=== PATIENT | male | born 1990 | race Caucasian/White ===

== ENCOUNTER 2016-11-17 04:23 | Emergency (ER) | payer SELFPAY ==
[2016-11-17 04:31] VITALS: BP 153/78; PULSE 96; TEMP 98.2; BMI 26.6
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
== END 2016-11-17 06:15 | disposition home or self-care (01) ==
LOC: JER 04:23
PROC: 0CQ13ZZ Repair Lower Lip, Percutaneous Approach (ICD-10-PCS; principal; 2016-11-17)
DX: S01.511A Laceration without foreign body of lip, initial encounter (principal); S01.81XA Laceration without foreign body of other part of head, initial encounter; W26.8XXA Contact with other sharp object(s), not elsewhere classified, initial encounter; Y93.89 Activity, other specified; Y92.830 Public park as the place of occurrence of the external cause; Y99.8 Other external cause status
CPT/HCPCS: 99283-25

== ENCOUNTER 2016-12-01 16:25 | Emergency (ER) | payer SELFPAY ==
[2016-12-01 16:29] VITALS: BP 136/88; PULSE 92; TEMP 98; BMI 28.1
--- NOTE | 2016-12-01 17:01 | PDOC ---
Suture Removal/Wound Check HPI - History of Present Illness Chief Complaint: Suture/Staple Removal(Here) Stated Complaint: STITCHES REMOVAL Time Seen by Provider: 12/01/16 16:33 History Source: Yes: Patient Exam Limitations: Yes: No Limitations Treated at: [facility] Date of Last ED visit: 11/17/16 - Previous ED Treatment Type of procedure performed on last visit: Yes: Laceration Repair Tetanus Immunization: Yes: Up to Date Antibiotics Prescribed: No Past History - Past Medical History Allergies/Adverse Reactions: Allergies No Known Allergies Allergy (Verified 12/01/16 16:29) Home Medications: Ambulatory Orders Albuterol Sulfate Inhaler - [Ventolin HFA Inhaler -] 1 - 2 inh PO Q4H 09/19/14 Cyclobenzaprine HCl [Flexeril -] 10 mg PO HS #7 tablet 09/19/14 Ibuprofen [Motrin -] 600 mg PO TID #21 tablet 09/19/14 Oxycodone HCl/Acetaminophen [Percocet 5-325 mg Tablet -] 1 - 2 tab PO Q6H #20 tablet 09/19/14 Bacitracin 28 gm TP ONCE #1 oint...g. 11/17/16 - Immunization History Immunizations Up to Date: Yes Tetanus Status: Less than 5 years - Social History Smoking History: No Smoking Status: Current every day smoker Number of Ciarettes Per Day: 20 Suture Removal/Wound Check PE - Physical Exam Laceration/Wound Check Symptoms: reports: None Current Severity Level: None Maximum Severity Level: None Pain Localization: None *Review of Systems - Review of Systems Constitutional: No: Symptoms Reported Musculoskeletal: No: Symptoms Reported Integumentary: No: Symptoms Reported Medical Decision Making - Medical Decision Making 12/01/16 16:59 8 sutures were removed from chin without difficulty there is no erythema edema, or localized suture irritation. *DC/Admit/Observation/Transfer Diagnosis at time of Disposition: Visit for suture removal - Discharge Dispostion Disposition: HOME Condition at time of disposition: Good Admit: No - Patient Instructions Printed Discharge Instructions: DI for Suture Removal
== END 2016-12-01 17:02 | disposition home or self-care (01) ==
LOC: JERFT 16:25
DX: Z48.02 Encounter for removal of sutures (principal)
CPT/HCPCS: 99281-25

== ENCOUNTER 2017-11-29 14:02 | Emergency (ER) | payer OTHER ==
[2017-11-29 14:06] VITALS: BP 122/70; PULSE 69; TEMP 98.2; BMI 30.4
[2017-11-29] MEDS ORDERED: AZITHROMYCIN 250 MG TABLET PO ONE (14:46)
[2017-11-29] MEDS ORDERED: AZITHROMYCIN 500 MG TABLET ONE (14:52)
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
[2017-11-29 15:09] LABS: URINE APPEARANCE CLEAR; URINE BILIRUBIN NEGATIVE (<2.0 mg/dL); URINE COLOR YELLOW; URINE GLUCOSE (UA) NEGATIVE (NEGATIVE); URINE KETONE NEGATIVE (NEGATIVE); URINE NITRITE NEGATIVE (NEGATIVE); URINE PROTEIN NEGATIVE (NEGATIVE); URINE UROBILINOGEN NEGATIVE mg/dL (0.2-1.0)
[2017-11-29 15:16] LABS: URINE LEUK ESTERASE 2+ (NEGATIVE)
[2017-11-29 15:18] LABS: URINE MUCUS MANY
== END 2017-11-29 16:58 | disposition home or self-care (01) ==
LOC: JERFT 14:02
DX: N34.2 Other urethritis (principal)
CPT/HCPCS: 36415; 81003; 81015; 86593; 87086; 87389; 87491; 87591; 99281-25

== ENCOUNTER 2018-07-20 01:29 | Emergency (ER) | payer SELFPAY ==
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
[2018-07-20] MEDS ORDERED: HYDROmorphone HCl 2 MG/ML VIAL ONE (02:42)
[2018-07-20] MEDS ORDERED: HYDROmorphone HCL CARPU-JECT 2 MG/1 ML DISP.SYRIN IM ONE (02:45)
[2018-07-20 03:09] VITALS: BP 117/75; PULSE 82; TEMP 98.8; BMI 26.4
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
== END 2018-07-20 03:41 | disposition home or self-care (01) ==
LOC: JER 01:29
PROC: 0RSJXZZ Reposition Right Shoulder Joint, External Approach (ICD-10-PCS; principal; 2018-07-20)
DX: S43.084A Other dislocation of right shoulder joint, initial encounter (principal); X50.9XXA Other and unspecified overexertion or strenuous movements or postures, initial encounter; Y93.89 Activity, other specified; Y92.89 Other specified places as the place of occurrence of the external cause; Y99.8 Other external cause status
CPT/HCPCS: 73030-TC-RT-FY; 99282-25

== ENCOUNTER 2019-01-31 02:31 | Emergency (ER) | payer SELFPAY ==
[2019-01-31 02:47] VITALS: TEMP 98.3
--- NOTE | 2019-01-31 02:47 | PDOC ---
History of Present Illness - General Chief Complaint: Pain Stated Complaint: RIGHT SHOULDER PAIN Past History - Past Medical History Allergies/Adverse Reactions: Allergies Allergy/AdvReac Type Severity Reaction Status Date / Time No Known Allergies Allergy Verified 01/31/19 02:47 Home Medications: Ambulatory Orders Ibuprofen [Motrin -] 600 mg PO TID #21 tablet 07/20/18 Anemia: No Asthma: No Cancer: No Cardiac Disorders: No COPD: No - Surgical History Abdominal Surgery: Yes (exploratory laparotomy) - Immunization History Td Vaccination: Yes TDAP Vaccination: Yes Immunization Up to Date: Yes - Psycho Social/Smoking Cessation Hx Smoking Status: No Smoking History: Unknown if ever smoked Have you smoked in the past 12 months: No Number of Cigarettes Smoked Daily: 20 Hx Alcohol Use: No Drug/Substance Use Hx: No *Physical Exam - Vital Signs Last Vital Signs Temp Pulse Resp BP Pulse Ox 98.3 F 130/80 01/31/19 02:46 01/31/19 02:46 Procedures - Joint Reduction Right Joint Reduction Site: right: Shoulder Pre-Procedure NV Exam: normal Conscious Sedation: Yes (Fentanyl, versed, ketamine) Reduction Attempts: 4 Anesthesia: Fentanyl Amt. of medication administered: 100mcg Procedure: Traction Counter Traction Post-Procedure NV Exam: normal Complications: No Post Joint Reduction Film: joint reduced Splint: No Medical Decision Making - Medical Decision Making 01/31/19 02:47 HPI: 28yo M hx R shoulder dislocations presents from home with atraumatic R shoulder dislocation after moving arm backwards oddly approx an hour ago, exactly the same as 2 other dislocations which required ED reductions, constant pain in R shoulder, nonradiating, acute onset, worse with movement, has not taken any pain meds, a little better in sling, just wants to get it reduced. Denies trauma , fall, other injuries, fever, chills, fatigue, headache, dizziness, numbness/ tingling, weakness, vision changes, shortness of breath, cough, chest pain, palpitations, leg swelling, abdominal pain, blood in stool, diarrhea, constipation, nausea, vomiting, dysuria, hematuria, confusion. ROS: Constitutional: Negative for chills, fever, fatigue, diaphoresis. HENT: Negative for sore throat, rhinorrhea, congestion. Eyes: Negative for visual disturbance. Respiratory: Negative for shortness of breath, cough, and wheezing. Cardiovascular: Negative for chest pain, palpitations, and leg swelling. Gastrointestinal: Negative for abdominal pain, blood in stool, constipation, diarrhea, nausea, and vomiting. Genitourinary: Negative for dysuria, flank pain, and hematuria. Musculoskeletal: Positive for R shoulder pain and dislocation. Negative for myalgias, back pain, and neck pain. Skin: Negative for rash. Neurological: Negative for light-headedness, dizziness, vertigo, syncope, weakness, numbness and headaches. Psychiatric/Behavioral: Negative for behavioral problems and confusion. PE: Gen: Alert, NAD, uncomfortable-appearing in significant pain HEENT: PERRL, EOMI, MMM, NCAT. No conjunctival pallor. Sclera are non-icteric. CV: Regular rate and rhythm. No murmurs, rubs, or gallops. PULM: No resp distress. CTAB, no wheezes, rales, or rhonchi. ABD: soft, NT/ND, no rebound tenderness or guarding, no CVA tenderness. BACK: No TTP of c/t/l-spine. No step-offs or deformities. MSK: 2+ pulses in all extremities. RUE: in sling, severe TTP of R shoulder, no TTP of clavicle or humerus or elbow , decreased ROM of shoulder 2/2 pain, shoulder deformed appears anterior dislocation of humeral head, sensation to light touch intact throughout, full ROM of wrist and fingers, 2+ pulse, <2 sec cap refill NEURO: AAOx3. PERRL. No gross CN deficits. Strength and sensation grossly intact throughout. EXTREMITIES: No cyanosis. No clubbing. No edema. No calf tenderness. PSYCH: Normal mood and thought pattern. SKIN: Warm and dry. Normal capillary refill. No rashes. No jaundice. MDM: 28yo M hx R shoulder dislocations presents from home with atraumatic R shoulder dislocation after moving arm backwards oddly, exactly the same as 2 other dislocations which required ED reductions. Hemodynamically stable, in significant pain, deformity of R shoulder, RUE neurovascularly intact, no other injuries, clavicle normal. Most likely dislocation due to hx, exam, and consistency with prior dislocations. No trauma or other signs of injury concerning for fx or other injuries. -XR R shoulder: anterior dislocation, no signs of fx -Morphine for pain -panel monitor -Conscious sedation with Fentanyl and Versed 01/31/19 04:26 Difficult reduction performed with fentanyl, versed, morphine, and ketamine. See procedure note. Written consent obtained. Fentanyl started at 0340, given 25mcg x4 at 5min intervals for total 100mcg, then 2 of versed. External rotation attempt unsuccessful. Pt still awake and in pain, resisting reduction - additional 2 versed and 4 morphine given. Traction with foot in axilla attempt unsuccessful. Traction counter traction attempt unsuccessful. Pt still in pain and resisting reduction. Additional 50mg ketamine and 4mg morphine given. External rotation attempt unsuccessful. Additional 50mg ketamine given. Traction counter traction successful. Pt feels much better. Sling placed. RUE neurovascularly intact. Pt sleepy but arousable. Throughout procedure, pulse ox in high 90s, BP stable systolic initially 140s down to 120s, HR stable, respiratiosn stable. 01/31/19 05:58 XR R shoulder: no fx or subluxation, reduction successful 01/31/19 06:15 Still a bit sleepy, but alert and oriented. Denies pain. RUE neurovascularly intact. Ambulating well, stable gait. Will dc home with ortho f/u. Return precautions given. Pt understands all dc instructions and all questions were answered. Discharge - Discharge Information Problems reviewed: Yes Clinical Impression/Diagnosis: Shoulder joint dislocation Condition: Improved Disposition: HOME - Admission No - Follow up/Referral Referrals: Valerio Pinto MD [Staff Physician] - - Patient Discharge Instructions Patient Printed Discharge Instructions: DI for Shoulder Dislocation Additional Instructions: You have been seen in the Emergency Department for your right shoulder dislocation. You were sedated and the shoulder was reduced back into the correct position. You will need further evaluation by an Orthopedic Surgeon and you may need surgery. We have given you a referral to Dr Pinto - give his office a call to set up an appointment for within 72 hours. If you experience pain, you can take Tylenol or Ibuprofen as directed on the medication bottle, but do not exceed 3g of Ibuprofen or 4g of Tylenol a day. Follow the RICE protocol to help with the healing process: R - Rest. Rest and protect the injured or sore area. Stop, change, or take a break from any activity that may be causing your pain or soreness. I - Ice. Cold will reduce pain and swelling. Apply an ice or cold pack right away to prevent or minimize swelling. Apply the ice or cold pack for 10 to 20 minutes, 3 or more times a day. After 48 to 72 hours, if swelling is gone, apply heat to the area that hurts. Do not apply ice or heat directly to the skin. Place a towel over the cold or heat pack before applying it to the skin. C - Compression. Keep the arm in the sling. Loosen the sling if it gets too tight. Signs that the sling is too tight include numbness, tingling, increased pain, coolness, or swelling in the area below the sling. E - Elevation. Elevate the injured or sore area on pillows while applying ice and anytime you are sitting or lying down. Try to keep the area at or above the level of your heart to help minimize swelling. Return to the ED immediately if you experience worsening pain not controlled by over the counter medications, numbness or tingling, weakness, fever, swelling, or any other new or worsening symptom. - Post Discharge Activity Work/Back to School Note: Back to Work
[2019-01-31] MEDS ORDERED: morphine CARPU-JECT 4 MG/1 ML DISP.SYRIN IVPUSH ONE ×3 (02:50→03:55)
[2019-01-31] MEDS ORDERED: morphine SULFATE 4 MG/ML VIAL ONE ×3 (02:58→03:58)
[2019-01-31] MEDS ORDERED: MIDAZOLAM HCL 2 MG/2 ML SINGLE DOSE VIAL IVPUSH ONE ×3 (03:17→03:50)
[2019-01-31 03:18] VITALS: BMI 27.7
--- NOTE | 2019-01-31 03:18 | PDOC ---
Attending Attestation - Resident Resident Name: BellonabilRachelLuci - ED Attending Attestation I have performed the following: I have examined & evaluated the patient, The case was reviewed & discussed with the resident, I agree w/resident's findings & plan - HPI HPI: 01/31/19 03:18 pt hyperextended his right arm and he dislocated the shoulder - Physicial Exam PE: 01/31/19 05:33 Pt has an anterior dislocation of the right arm. 01/31/19 05:38 Sensory motor intact - Medical Decision Making 01/31/19 03:18 Home with sling and ortho followup. 01/31/19 05:00 Difficult relocation; we began medicating pt at 3:40 with 25mcg fentanyl x 4 at 5 min interval (total 100mcg) P had received 4mg morphine earlier IVP; then anotyher 4mg morphine, then 2 of versed. External rotation was unsuccessful Then 2 more versed and 4mg more morphine given. Foot in axilla with traction unsuccessful. Traction countertraction unsuccessful Then another 4mg morphine given no success. Finally 50mg ketamine given. External rotation unsuccessful; Another 50mg ketamine given traction countertraction successful at 4:30AM Pt is being monitored. Pulsox is 94%; BP is stable 140,120,100, 120 systolic. HR was never tachycardic. 01/31/19 05:39 Pt is more awake now and he will go for post reduction XR. Follow with ortho for operative repair. Procedures - Joint Reduction Right Joint Reduction Site: right: Shoulder Pre-Procedure NV Exam: normal Conscious Sedation: Yes Reduction Attempts: 4 Anesthesia: Fentanyl (and versed) Amt. of medication administered: 100mcg Procedure: Traction Counter Traction (also external rotation; etc) Post-Procedure NV Exam: normal Complications: No Post Joint Reduction Film: joint reduced Splint: No Immobilized: Yes - Additional Procedures Additional Procedures: other (conscious sedation)
[2019-01-31] MEDS ORDERED: MIDAZOLAM HCL 2 MG/2 ML SINGLE DOSE VIAL ONE ×4 (03:28→04:12)
[2019-01-31] MEDS ORDERED: SODIUM CHLORIDE 0.9% 500 ML INFUS.BAG IV ONE (03:41)
[2019-01-31] MEDS ORDERED: KETAMINE HCL 200 MG/20 ML VIAL IVPUSH ONE (04:15)
[2019-01-31] MEDS ORDERED: KETAMINE HCL 200 MG/20 ML VIAL ONE (04:20)
[2019-01-31 06:15] VITALS: BP 125/70; PULSE 70
== END 2019-01-31 06:16 | disposition home or self-care (01) ==
LOC: JER 02:31
PROC: 0RSJXZZ Reposition Right Shoulder Joint, External Approach (ICD-10-PCS; principal; 2019-01-31)
DX: M24.411 Recurrent dislocation, right shoulder (principal)
CPT/HCPCS: 73030-TC-RT-FY; 99284-25

== ENCOUNTER 2021-10-30 19:58 | Emergency (ER) | payer OTHER ==
[2021-10-30 20:01] VITALS: BP 115/78; PULSE 76; TEMP 97.8; BMI 26.4
[2021-10-30] MEDS ORDERED: LIDOCAINE 5% TOPICAL PATCH TP ONE (21:02)
[2021-10-30] MEDS ORDERED: DEXAMETHASONE SOD PHOSPHATE 10 MG/1 ML VIAL IM ONE (21:02)
[2021-10-30] MEDS ORDERED: diazePAM 5 MG TABLET PO ONE (21:02)
[2021-10-30] MEDS ORDERED: KETOROLAC TROMETHAMINE 30 MG/1 ML VIAL IM ONE (21:02)
[2021-10-30] MEDS ORDERED: LIDOCAINE 5% TOPICAL PATCH ONE (21:07)
[2021-10-30] MEDS ORDERED: KETOROLAC TROMETHAMINE 30 MG/1 ML VIAL ONE (21:08)
[2021-10-30] MEDS ORDERED: DEXAMETHASONE SOD PHOSPHATE 10 MG/1 ML VIAL ONE (21:08)
[2021-10-30] MEDS ORDERED: diazePAM 5 MG TABLET ONE (21:08)
[2021-10-30] MEDS ORDERED: LIDOCAINE PATCH REMOVAL MC SCH (22:00)
== END 2021-10-30 22:40 | disposition home or self-care (01) ==
LOC: JERFT 19:58
PROC: 3E023GC Introduction of Other Therapeutic Substance into Muscle, Percutaneous Approach (ICD-10-PCS; principal; 2021-10-30)
DX: M54.31 Sciatica, right side (principal)
CPT/HCPCS: 99284-25; J1100

== ENCOUNTER 2022-04-15 09:47 | Emergency (ER) | payer OTHER ==
[2022-04-15 10:02] VITALS: BMI 24.3
[2022-04-15] MEDS ORDERED: morphine CARPU-JECT 4 MG/1 ML DISP.SYRIN IVPUSH ONE (10:20)
[2022-04-15] MEDS ORDERED: ONDANSETRON 4 MG/2 ML VIAL IVPUSH ONE (10:20)
[2022-04-15] MEDS ORDERED: ONDANSETRON 4 MG/2 ML VIAL ONE (10:34)
[2022-04-15 10:36] LABS: BASO % 0.2 % (0-2.0); EOS % 0.6 % (0-4.5); HEMATOCRIT 43.1 % (35.4-49); HEMOGLOBIN 14.4 GM/dL (11.7-16.9); LYMPH % 17.7 % (8-40); MCH 30.8 pg (25.7-33.7); MCHC 33.5 g/dl (32.0-35.9); MEAN CELL VOLUME 91.7 fl (80-96); MEAN PLT VOLUME 8.6 fl (7.5-11.1); MONO % 11.1 % (3.8-10.2); NEUT % 70.4 % (42.8-82.8); PLATELET COUNT 307 10^3/uL (134-434); RDW 13.6 % (11.9-15.9); WHITE BLOOD COUNT 7.6 K/mm3 (4.0-10.0)
[2022-04-15] MEDS ORDERED: KETOROLAC TROMETHAMINE 15 MG/ML VIAL IVPUSH ONE (11:02)
[2022-04-15] MEDS ORDERED: KETOROLAC TROMETHAMINE 30 MG/1 ML VIAL ONE (11:05)
[2022-04-15 11:17] LABS: EPI CELLS 4 /uL (0-25.1); HYALINE CASTS 0 /uL (0-3.1); PH,URINE 5.5 (5.0-8.0); URINE APPEARANCE CLEAR; URINE BACTERIA 4 /uL (0-1359); URINE BILIRUBIN NEGATIVE (NEGATIVE); URINE COLOR DK YELLOW; URINE GLUCOSE (UA) NEGATIVE (NEGATIVE); URINE KETONE TRACE (NEGATIVE); URINE LEUK ESTERASE NEGATIVE (NEGATIVE); URINE NITRITE NEGATIVE (NEGATIVE); URINE PROTEIN 1+ (NEGATIVE); URINE RBC 34 /uL (0-23.9); URINE WBC 13 /uL (0-25.8)
[2022-04-15 11:34] LABS: ALBUMIN 3.9 g/dl (3.4-5.0); ALK PHOS 91 U/L (45-117); ANION GAP 7 MMOL/L (8-16); BILIRUBIN,TOTAL 0.5 mg/dL (0.2-1); CALCIUM 9.1 mg/dL (8.5-10.1); CHLORIDE 108 mmol/L (98-107); CO2 21 mmol/L (21-32); CREATININE 1.4 mg/dL (0.55-1.3); GLUCOSE,RANDOM 95 mg/dL (74-106); LIPASE < 10 U/L (73-393); SGOT/AST 119 U/L (15-37); SGPT/ALT 75 U/L (13-61); SODIUM 136 mmol/L (136-145); TOT PROT 7.9 g/dl (6.4-8.2)
[2022-04-15] MEDS ORDERED: SODIUM CHLORIDE 0.9% 500 ML INFUS.BAG IV ONE (11:36)
[2022-04-15 12:41] LABS: ALBUMIN 4.2 g/dl (3.4-5.0); BLOOD UREA NITROGEN 15.6 mg/dL (7-18); CALCIUM 9.3 mg/dL (8.5-10.1)
[2022-04-15 12:44] LABS: BILIRUBIN,TOTAL 0.5 mg/dL (0.2-1); CREATININE 1.3 mg/dL (0.55-1.3)
[2022-04-15 12:46] LABS: TOT PROT 7.3 g/dl (6.4-8.2)
[2022-04-15 13:36] VITALS: BP 118/74; PULSE 78; RESP 18; TEMP 98
== END 2022-04-15 13:34 | disposition home or self-care (01) ==
LOC: JER 09:47
PROC: 3E0333Z Introduction of Anti-inflammatory into Peripheral Vein, Percutaneous Approach (ICD-10-PCS; principal; 2022-04-15)
PROC: 3E033NZ Introduction of Analgesics, Hypnotics, Sedatives into Peripheral Vein, Percutaneous Approach (ICD-10-PCS; 2022-04-15)
PROC: 3E033GC Introduction of Other Therapeutic Substance into Peripheral Vein, Percutaneous Approach (ICD-10-PCS; 2022-04-15)
DX: N20.1 Calculus of ureter (principal)
CPT/HCPCS: 0241U-QW; 36415; 74176-TC; 80053; 81003; 83690; 85025; 87086; 99284-25

== ENCOUNTER 2022-09-09 11:22 | Emergency (ER) | payer OTHER ==
[2022-09-09 11:29] VITALS: BMI 26.4
[2022-09-09] MEDS ORDERED: LIDOCAINE 5% TOPICAL PATCH TP ONE (12:03)
[2022-09-09] MEDS ORDERED: DEXAMETHASONE SOD PHOSPHATE 10 MG/1 ML VIAL IM ONE (12:03)
[2022-09-09] MEDS ORDERED: diazePAM 5 MG TABLET PO ONE (12:03)
[2022-09-09] MEDS ORDERED: KETOROLAC TROMETHAMINE 30 MG/1 ML VIAL IM ONE (12:03)
[2022-09-09] MEDS ORDERED: LIDOCAINE 5% TOPICAL PATCH ONE (12:57)
[2022-09-09] MEDS ORDERED: DEXAMETHASONE SOD PHOSPHATE 10 MG/1 ML VIAL ONE (12:57)
[2022-09-09] MEDS ORDERED: diazePAM 5 MG TABLET ONE (12:57)
[2022-09-09] MEDS ORDERED: KETOROLAC TROMETHAMINE 30 MG/1 ML VIAL ONE (12:58)
[2022-09-09 14:52] VITALS: BP 125/70; PULSE 66; RESP 20; TEMP 97.5
[2022-09-09 15:31] LABS: EPI CELLS 9 /uL (0-25.1); HYALINE CASTS 5 /uL (0-3.1); URINE APPEARANCE CLEAR; URINE BACTERIA 17 /uL (0-1359); URINE BILIRUBIN NEGATIVE (NEGATIVE); URINE COLOR YELLOW; URINE GLUCOSE (UA) NEGATIVE (NEGATIVE); URINE KETONE TRACE (NEGATIVE); URINE LEUK ESTERASE TRACE (NEGATIVE); URINE NITRITE NEGATIVE (NEGATIVE); URINE PROTEIN NEGATIVE (NEGATIVE); URINE RBC 13 /uL (0-23.9); URINE UROBILINOGEN 0.2 mg/dL (0.2-1.0); URINE WBC 50 /uL (0-25.8)
[2022-09-09] MEDS ORDERED: LIDOCAINE PATCH REMOVAL MC ONE (22:00)
== END 2022-09-09 15:15 | disposition home or self-care (01) ==
LOC: JER 11:22
PROC: 3E023GC Introduction of Other Therapeutic Substance into Muscle, Percutaneous Approach (ICD-10-PCS; principal; 2022-09-09)
PROC: 3E0233Z Introduction of Anti-inflammatory into Muscle, Percutaneous Approach (ICD-10-PCS; 2022-09-09)
DX: M54.16 Radiculopathy, lumbar region (principal)
CPT/HCPCS: 72100-TC-FY; 72170-TC-FY; 81003; 99285-25; J1100

== ENCOUNTER 2023-03-05 12:24 | Emergency (ER) | payer OTHER ==
[2023-03-05 12:38] VITALS: BP 109/71; PULSE 85; RESP 18; TEMP 98; BMI 30.3
== END 2023-03-05 13:46 | disposition home or self-care (01) ==
LOC: JER 12:24
DX: A60.01 Herpesviral infection of penis (principal)
CPT/HCPCS: 36415; 86780; 87086; 87491; 87529; 87591; 99284-25